=== PATIENT | female | born 1975 | race Caucasian/White ===

== ENCOUNTER → 2019-09-15 17:12 | Outpatient (CLI) | payer OTHER, SELFPAY ==
--- NOTE | 2019-09-15 | FLU_PTH ---
PATIENT: MARICEL VAZQUEZ LOC: [facility] U#:[id number] AGE/SX: 49/F ROOM: RE09/15/[address]: Anabela Peters : 1975 BED: DIS: SPEC #: [id number] RECD: 09/15/19 15:00 STATUS: CHRISTOPHER AMAIRANI #: [id number] SANDRA: 09/15/19 00:[address]: Anabela Peters DEPT: CYTOLOGY RECD BY: Leena Mccain ENTERED: 09/16/19 09:26 SP TYPE: Fluid OTHR DR: Dr. Dung Norwood MD Tissues: Urine Procedures: Special Stain Group II Cytospin Fluid HEADER OPERATION: Not noted PRE-OP DIAGNOSIS: Gross hematuria R31.0 TISSUE SUBMITTED: Urine for cytology DIAGNOSIS CYTOLOGY Urine for cytology (cytospin): Negative for malignant cells. See comment. ADELINA:wallace 09/16/19 COMMENT Organisms consistent with bacteria are also noted. Clinical correlation and appropriate follow up are necessary. CYTOLOGY STUDY Slides are reviewed. CYTOLOGY GROSS Received is 55 ml of cloudy yellow fluid labeled with the patient's name and and designated per the requisition as urine. Submitted for cytology preparation. /CC:cc 09/16/19 TC:5 CPT: 56594
[2019-09-15 17:15] LABS: Cytology, Body Fluid / CSF SEE PATHOLOGY REPORT
== END ==
PROVIDERS: PCP Family Medicine
DX: R31.0 Gross hematuria (principal)
CPT/HCPCS: 88108; 88305; 88313

== ENCOUNTER → 2020-03-30 14:15 | Outpatient (CLI) | payer OTHER, SELFPAY | PROVIDERS: PCP Family Medicine; Referring Provider Urology; Visit Provider Urology | DX: R30.9 Painful micturition, unspecified (principal) | CPT/HCPCS: 87086; 87088; 87186 ==

== ENCOUNTER → 2021-02-11 12:20 | Outpatient (CLI) | payer SELFPAY | PROVIDERS: PCP Family Medicine; Referring Provider Nurse Practitioner Adult Health; Visit Provider Nurse Practitioner Adult Health | DX: N30.01 Acute cystitis with hematuria (principal) | CPT/HCPCS: 87086 ==